=== PATIENT | female | born 1995 | race Two or more races ===

== ENCOUNTER 2024-10-01 15:38 | Outpatient (CLI) | payer OTHER, SELFPAY | END 2024-10-01 15:39 | disposition home or self-care (01) | LOC: NFLDREF 23:56 | PROVIDERS: Visit Provider Advanced Practice Midwife | DX: Z34.03 Encounter for supervision of normal first pregnancy, third trimester (principal) | CPT/HCPCS: 86592; 86704; 86706; 87340 ==

== ENCOUNTER 2024-11-22 11:00 | Outpatient (CLI) | payer OTHER, SELFPAY | END 2024-11-22 11:01 | disposition home or self-care (01) | LOC: NFLDREF 11-26 03:06 | PROVIDERS: Visit Provider Advanced Practice Midwife | DX: Z34.03 Encounter for supervision of normal first pregnancy, third trimester (principal) | CPT/HCPCS: 87081; 87653 ==

== ENCOUNTER 2024-12-02 10:39 | Outpatient (CLI) | payer OTHER, SELFPAY | END 2024-12-02 10:40 | disposition home or self-care (01) | PROVIDERS: Visit Provider Midwife | DX: Z34.93 Encounter for supervision of normal pregnancy, unspecified, third trimester (principal); Z3A.38 38 weeks gestation of pregnancy | CPT/HCPCS: 82239; 82565; 84450; 84460; 84550 ==

== ENCOUNTER 2024-12-03 11:31 | Inpatient (IN) | payer OTHER, SELFPAY ==
[2024-12-03] VITALS (56 sets, daily range): BP systolic 93–167; BP diastolic 51–100; PULSE 74–116; RESP 16; TEMP 36.4–36.7; O2SAT 98–100; BMI 22.7
[2024-12-03 11:36] LABS: Total Protein Urine 15 mg/dL
[2024-12-03 11:37] LABS: Creatinine Urine 65.2 mg/dL; Protein Creatinine Ratio Urine 0.23 (0-0.19)
[2024-12-03 12:15] LABS: Hematocrit 33.4 % (33.0-51.0); Hemoglobin* 11.5 gm/dL (12.0-16.0); Mean Corpuscular HGB Conc 34 gm/dL (32-36); Mean Corpuscular Hemoglobin 33 pg (26-34); Mean Corpuscular Volume 96 fL (80-100); Platelet Count* 171 K/uL (140-440); Red Blood Count 3.49 m/uL (4.00-5.20); White Blood Count* 7.13 K/uL (4.50-11.00)
--- NOTE | 2024-12-03 12:16 | W.PM.LDBA ---
Subjective History of Present Illness Date Seen: 12/03/24 Narrative: Patient is being admitted to Labor and Delivery for augmentation of early labor for choestasis, elevated bp without diagnosis of HTN at this time. She is a 29 year old at 38w5d weeks gestation. Her full history and physical was dictated by Dr. Yaa ANDERSON on 11/23/2024. Please see this for details. Pt presented to clinic visit yesterday with complaints of generalized itching that was worsening and decreased movement. She has papules of upper thighs, face, back, chest and upper belly. She also had itching of palms and soles of her feet. NST was reactive and Labs were sent at that time. Pt presented this morning to L&D with signs of early labor. No DIXON, vision changes, RUQ pain exclusive of contractions. Itching reported to be improved since the day prior, but she had been kvng through the night with increasing intensity. movement has been good. No vaginal bleeding or leaking of fluid. Significant LFT elevation >2x normal noted from labs yesterday. Bile acids still pending. Specific Issues/Plans G1 : [facility] at 29 weeks from [facility] in [place] H&P completed by MONICA Kay on 11/23/2024 # History latent TB. Treatment completed Aug 2023. # Family hx PreE (mom and sister). On 81mg ASA. # Hx Chlamydia at age 22. Neg at NOB. Transfer at 29 weeks OB Labs:??? Blood type: B+, antibody screen negative.? Rubella: Immune??? Varicella: Immune? RPR: non-reactive? Hep C: negative? HIV: negative??? UC: negative? GC/Chlamydia: negative/negative??? Pap (05/31/24): NIL??? Genetic screening: negative Helper? No Hep B in transfer records. Added to GTT at 28 weeks. ? IMAGING:??? 1st trimester: Normal IUP at 9.0 weeks on 05/11/24??? Anatomy scan: 07/26/24-Single IUP at 20.2 weeks with FHR 148, VICKEY normal, EFW 55%, all structures appear normal.??? COVID: initial series and boosted Flu: declined TDAP: 10/29/24 LP: 05/31/2024, NIL OB - Problem Based A/P Additional Plan (1) Hypertension affecting : Status: Acute (2) Cholestasis during : Status: Acute (3) First : Status: Acute Plan ASSESSMENT:?? 29 at 38w5d gestation?? complicated by:??cholestasis Labor type: early labor with augmentation?? Category 1 FHR pattern.??? Labor complicated by: elevated BP without diagnosis of HTN, cholestasis, elevated liver enzymes? GBS negative PLAN:?? 1. Pre-e labs sent. Cannot differentiate at this time if cholestasis responsible for elevated liver enzymes or if a pre-e process is occuring. If hypertension continues with 2 elevated BP 4 hr apart, diagnosis of pre-e with severe features would prompt a transfer to OB care, magnesium drip for prohylaxis. Dr Wolff aware of current patient situation and plan. Encouraged sooner rather than later and augmentation recommended. Pt agrees to pitocin initiation and would like to wait on AROM for now, but realized this is an option anytime. Plan reviewed with patient. 2 Peripheral IVs to be started. While liver enzymes have improved, they are still excessively high today. PCR 0.23. 2. Monitoring per policy, continuous 3. Planning unmedicated . Desires water . Consent signed. Hep C negative. Candidate for analgesia of choice.??? 4. Patient encouraged to reposition and ambulate to promote physiologic labor and if BP allows.?? 5. Anticipate ? OB Exam Physical Exam Vital signs: Pulse BP Pulse Ox 78 156/100 H 100 12/03/24 11:58 12/03/24 11:58 12/03/24 10:13 Narrative: Vitals Reviewed Constitutional:? Alert and oriented x3 HEENT:? Normocephalic, atraumatic Neck:? Supple Lungs:? Clear to auscultation bilaterally Heart:? Regular rate and rhythm, no murmur, rub or gallop Abdomen:? Soft, nontender, and gravid. Vertex by Eugene's, confirmed with cervical exam per nursing. Extremities:? No edema or erythema. +3/4 bilateral lower extremity reflexes with one beat clonus each Cervix: 2.5 cm/70%/-2 station/vertex NST: 125 bpm/moderate variability/accelerations present/decelerations absent/contractions q 6-8 min x 1.5-2 min See labs and VS
[2024-12-03 12:23] LABS: Slide Review Reflex No
[2024-12-03 12:34] LABS: Alanine Aminotransferase* 259 U/L (4-35); Aspartate Amino Transferase* 132 U/L (12-35); Blood Urea Nitrogen* 5 mg/dL (5-24); Creatinine* 0.5 mg/dL (0.5-1.5); Est. Creatinine Clearance* 164.35; Estimated Glomerular Filt Rate 132 ml/min
[2024-12-03] MEDS: LACTATED RINGERS 1000 ML 1,000 ML 35 ML IV ×2 (12:45→18:51)
[2024-12-03] MEDS: OXYTOCIN 30 unit/500 ML in NS 30 UNIT/500 ML BAG IVPB (12:46)
--- NOTE | 2024-12-03 13:34 | PM.OBPNVD1 ---
OB - PN:Subj Subjective Date Seen: 12/03/24 Interval history: Faby is doing well. BPs are increasing with last 160/100, severe range. Will transfer to OB for pre-e with severe features. Magnesium bolus to be initiated. Pitocin is running at 2 mu/min. Pt is coping well at this time and supported by her partner. OB - PN: Obj Exam Physical Exam: Vital signs: Temp Pulse Resp BP Pulse Ox 97.5 F L 86 16 160/100 H 100 12/03/24 10:14 12/03/24 13:30 12/03/24 10:14 12/03/24 13:30 12/03/24 10:13 Narrative: Objective: Constitutional: Alert and oriented x3, [mild/moderate/severe] distress, coping well Vital signs stable, see nurse documentation Abdomen: gravid, contractions palpate [mild/moderate/strong] with contractions and soft between NST: 135 bpm/moderate variability/accelerations present/decelerations absent/contractions q 4-5 min [id number] OB - PN: Obj Data Labs Labs: Laboratory Results - last 24 hr 12/03/24 12/03/24 11:09 12:05 WBC 7.13 RBC 3.49 L Hgb 11.5 L Hct 33.4 MCV 96 MCH 33 MCHC 34 Plt Count 171 BUN 5 Creatinine 0.5 Estimated Creat Clear 164.35 Estimated GFR 132 AST 132 H ALT 259 H Urine Creatinine 65.2 Protein/Creatinin Ratio 0.23 H Urine Total Protein 15 Blood Type B Positive Antibody Screen POSITIVE OB - PN: A/P Delivery Assessment and Plan (1) Cholestasis during : Status: Acute (2) First : Status: Acute (3) Preeclampsia: Status: Inactive (4) Pre-eclampsia in third trimester: Problem details: With severe features Status: Acute
--- NOTE | 2024-12-03 13:44 | PM.OBPNL ---
Subjective Date Seen: 12/03/24 Narrative: Faby is doing well. BPs are increasing with last 160/100, severe range. Will transfer to OB for pre-e with severe features. Magnesium bolus to be initiated. Pitocin is running at 2 mu/min. Pt is coping well at this time and supported by her partner. Objective Exam: Objective: Constitutional: Alert and oriented x3, no distress, coping well Vital signs stable, see nurse documentation Abdomen: gravid NST: 135 bpm/modreate variability/accelerations present/decelerations absent/contractions q 4-5 min x 2 min Vital Signs: Last Vital Signs Temp 97.5 F L 12/03/24 10:14 Pulse 86 12/03/24 13:30 Resp 16 12/03/24 10:14 BP 160/100 H 12/03/24 13:30 Pulse Ox 100 12/03/24 10:13 Plan Plan: ASSESSMENT:?? 29 at 38w5d gestation?? complicated by:??cholestasis Labor type: early labor with augmentation?? Category 1 FHR pattern.??? Labor complicated by: Preeclampsia with severe features, cholestasis of GBS negative PLAN:?? 1. Initiate magnesium therapy for prophylaxis. Transfer to OB for pre-e with severe features. 2. Monitoring per policy, continuous 3. Candidate for analgesia of choice.??? 4. Patient encouraged to reposition and ambulate to promote physiologic labor and if BP allows.?? 5. Anticipate ?
[2024-12-03] MEDS: MAGNESIUM IV 4 GM/100 ML PIGGYBACK IVPB (13:48)
[2024-12-03] MEDS: MAGNESIUM Infusion 40 GM/1,000 ML IV.SOLN IVPB (14:16)
--- NOTE | 2024-12-03 14:48 | PM.OBCN1 ---
OB - CN: HPI Date of Consult Time Seen by Provider: 13:40 Date Seen: 12/03/24 Patient: [facility] Patient Consult date: 12/03/24 Requesting Physician: Rocio Estrada CNM Primary Care Provider: Not a Local Provider Consult Narrative Reason for consult: gestational hypertension (Preeclampsia with severe features by both blood pressure and transaminitis.) Narrative: Faby is a 29-year-old total 1 para 0 who was admitted today for induction of labor for possible cholestasis of versus preeclampsia. The patient was seen in the clinic by the nurse flatcar whacker group yesterday and she was complaining of itching on the soles of her feet and palms of her hands liver function tests were obtained and both were elevated. AST 145 ALT 288. Bile acids are pending. She denies headache, visual disturbance, right upper quadrant pain and edema. She presented to the center this morning with concerns for possible early labor with contractions every 7-10 minutes. Her blood pressure was elevated on arrival at the Center. She was admitted for induction of labor due to suspected cholestasis of versus preeclampsia. Preeclampsia labs were obtained which showed: Hemoglobin 11.5, platelets 171 K, BUN 5, creatinine 0.5, AST 132, ALT 259, urine protein/creatinine ratio 0.23. At 1:30 p.m. the patient had blood pressure 160/100 so she was started on magnesium sulfate for seizure prophylaxis and met criteria for preeclampsia with severe features by transaminitis. After magnesium was started her blood pressures have all been 130s/80s. No antihypertensive medication was given. Because the patient meets criteria for severe preeclampsia I assumed care from Rocio Estrada CNM. Please see Ranjit's History and Physical note for complete details. History of Present Dating criteria: based on LMP care: good care Ultrasounds: normal 1st trimester US and normal mid trimester US complications: preeclampsia History History 1 Elective abortions Para 0 Spontaneous abortions Hx # Term Pregnancies Ectopic pregnancies Hx # Pregnancies Multiple births Number of Living Children 0 Labs Blood type: B (+) positive GBS status: negative OB Labs: Lab Assessment Start: 12/03/24 11:37 Freq: ONCE Status: Complete Protocol: PC.OBGBS Activity Type Activity Date Activity User E-sign Co-sign Detail Recorded Client Recorded Date Recorded By Document 02/21/25 11:48 ABP No Response 12/03/24 11:51 ABP 12/03/24 11:48 Lab Assessment GBS Status negative GBS Additional Criteria None No Treatment Needed OK Are Labs Available Yes Maternal Blood Type B Maternal RH Factor Positive Evaluate Maternal Rubella Immune Status Immune Hepatitis B Surface Antigen Negative Maternal HIV Status Negative Maternal Syphillis (RPR) Status Negative PFSH PFSH Medical History Hx: meningitis ?Z86.61 - Personal history of infections of the central nervous system (ICD-10) Personal history of latent tuberculosis infection ?Z86.15 - Personal history of latent tuberculosis infection (ICD-10) History of frequent urinary tract infections ?Z87.440 - Personal history of urinary (tract) infections (ICD-10) Surgical History Hx of tooth extraction ?K08.409 - Partial loss of teeth, unspecified cause, unspecified class (ICD-10) Family History Mother Preeclampsia High blood pressure Sister Preeclampsia Father High blood pressure Social History Narrative: SOCIAL Education: working on her bachelors in languages 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 Lives with: Pets: dog Abuse: Denies past Special Diet: Denies Ok with a blood transfusion: yes Culture or temple beliefs: denies RISK FACTORS Exercise Times/wk: occasionally walking Depression/Anxiety: denies Seat Belt Use: Routinely Smoking: Denies past/present Alcohol/day: Denies while Caffeine: 1 cup coffee per day Drug Use: Denies past/present Chicken Pox: Yes as a child MRSA: Denies What is your current living situation?: I presently have a place to live Problems where you live: no known problems In the past 12 months, utilities in danger of being shut off: no In past 12 months, lack of transportation kept you from medical appts, meetings, work, or getting things needed for daily living: no In the past 12 mos, have been you worried that your food would run out before you had money to buy more?: never true In the past 12 mos, the food you bought just didn't last and you didn't have money to buy more?: never true Smoking Status: Never smoker How often does anyone, including family, friends and others, physically hurt you: never How often does anyone, including family, friends and others, insult or talk down to you: never How often does anyone, including family, friends and others, threaten you with harm: never How often does anyone, including family, friends and others, scream or curse at you: never Meds Home Medications and Allergies Home Medications ?Medication ?Instructions ?Recorded ?Confirmed ?Type aspirin 81 mg chewable tablet 81 mg PO QDAY 09/27/24 12/03/24 History ferrous sulfate 325 mg (65 mg 325 mg PO Q OTHER DAY 09/27/24 12/03/24 History iron) tablet (Feosol) magnesium 250 mg tablet 250 mg PO QDAY 09/27/24 12/03/24 History Allergies Allergy/AdvReac Type Severity Reaction Status Date / Time No Known Drug Allergies Allergy Verified 12/02/24 10:31 OB - H&P: Exam Physical Exam: Vital signs: Temp Pulse Resp BP Pulse Ox 97.5 F L 88 16 137/93 H 98 12/03/24 10:14 12/03/24 14:35 12/03/24 10:14 12/03/24 14:35 12/03/24 14:16 Narrative: General: Pleasant woman in no acute distress. Vital signs: Included in her electronic medical record. Heart: Regular rate and rhythm without gallop, rub or murmur. Chest: Clear to auscultation bilaterally. Abdomen: Gravid, nontender. EFM: Baseline: 130s. Accelerations: Present. Decelerations: Absent. Moderate variability. Reactive. Category 1. TOCO: Q4-5 minutes. SVE: Patient declined and declined AROM at this time. Extremities: No pain or edema. DTR's 2+/2 at Bilateral patella. OB - Results Labs Labs: Short CBC 12/03/24 Range/Units 11:09 WBC 7.13 (4.50-11.00) K/uL Hgb 11.5 L (12.0-16.0) gm/dL Hct 33.4 (33.0-51.0) % Plt Count 171 (140-440) K/uL BMP 12/03/24 12:05 BUN 5 Creatinine 0.5 Liver Function 12/03/24 Range/Units 12:05 AST 132 H (12-35) U/L ALT 259 H (4-35) U/L OB - CN: A/P Assessment and Plan (1) Cholestasis during : Status: Acute (2) First : Status: Acute (3) Preeclampsia: Start date: 12/03/24 Start time: 13:30 Status: Inactive Plan 1. Continue Magnesium sulfate for seizure prophylaxis: discontinue when the patient is 24hours . 2. Blood type: B+ 3. GBS negative. 4. Continue pitocin per induction protocol. 5. The patient is planning an epidural for labor analgesia.
[2024-12-03] MEDS: LIDOCAINE 2% (PF) 5 ML VIAL EPIDURAL (15:33)
[2024-12-03] MEDS: ROPIVACAINE 0.2% 100 ml 100 ML 12 MG EPIDURAL (15:33)
--- NOTE | 2024-12-03 16:29 | PM.ANBPRC ---
PFSH PFS Medical History Hx: meningitis ?Z86.61 - Personal history of infections of the central nervous system (ICD-10) Personal history of latent tuberculosis infection ?Z86.15 - Personal history of latent tuberculosis infection (ICD-10) History of frequent urinary tract infections ?Z87.440 - Personal history of urinary (tract) infections (ICD-10) Surgical History Hx of tooth extraction ?K08.409 - Partial loss of teeth, unspecified cause, unspecified class (ICD-10) Family History Mother Preeclampsia High blood pressure Sister Preeclampsia Father High blood pressure Social History Narrative: SOCIAL Education: working on her bachelors in languages Work: [employer] Partner: Bharat- inspector [employer] Lives with: Pets: dog Abuse: Denies past Special Diet: Denies Ok with a blood transfusion: yes Culture or buddhism beliefs: denies RISK FACTORS Exercise Times/wk: occasionally walking Depression/Anxiety: denies Seat Belt Use: Routinely Smoking: Denies past/present Alcohol/day: Denies while Caffeine: 1 cup coffee per day Drug Use: Denies past/present Chicken Pox: Yes as a child MRSA: Denies What is your current living situation?: I presently have a place to live Problems where you live: no known problems In the past 12 months, utilities in danger of being shut off: no In past 12 months, lack of transportation kept you from medical appts, meetings, work, or getting things needed for daily living: no In the past 12 mos, have been you worried that your food would run out before you had money to buy more?: never true In the past 12 mos, the food you bought just didn't last and you didn't have money to buy more?: never true Smoking Status: Never smoker How often does anyone, including family, friends and others, physically hurt you: never How often does anyone, including family, friends and others, insult or talk down to you: never How often does anyone, including family, friends and others, threaten you with harm: never How often does anyone, including family, friends and others, scream or curse at you: never Meds Home Medications and Allergies Home Medications ?Medication ?Instructions ?Recorded ?Confirmed ?Type aspirin 81 mg chewable tablet 81 mg PO QDAY 09/27/24 12/03/24 History ferrous sulfate 325 mg (65 mg 325 mg PO Q OTHER DAY 09/27/24 12/03/24 History iron) tablet (Feosol) magnesium 250 mg tablet 250 mg PO QDAY 09/27/24 12/03/24 History Allergies Allergy/AdvReac Type Severity Reaction Status Date / Time No Known Drug Allergies Allergy Verified 12/02/24 10:31 Results Labs Labs: Laboratory Results - last 24 hr 12/03/24 12/03/24 11:09 12:05 WBC 7.13 RBC 3.49 L Hgb 11.5 L Hct 33.4 MCV 96 MCH 33 MCHC 34 Plt Count 171 BUN 5 Creatinine 0.5 Estimated Creat Clear 164.35 Estimated GFR 132 AST 132 H ALT 259 H Urine Creatinine 65.2 Protein/Creatinin Ratio 0.23 H Urine Total Protein 15 Blood Type B Positive Antibody Screen POSITIVE Vital Signs Vital Signs: Last Vital Signs Temp 97.6 F 12/03/24 15:57 Pulse 85 12/03/24 16:19 Resp 16 12/03/24 10:14 BP 109/63 12/03/24 16:19 Pulse Ox 99 12/03/24 16:07 Weight: 65.771 kg Height: 170.18 cm Anesthesia Procedures Epidural Insertion Patient Location: OB Start Time: 15:00 Stop Time: 16:00 Start Date: 12/03/24 Stop Date: 12/03/24 Reason for Block: procedure for pain Patient Position: sitting Performed By: Wendi Chapa Preanesthetic Checklist: IV checked, site marked, risks and benefits discussed, monitors and equipment checked, pre-op evaluation, timeout performed and anesthesia consent Prep: chlorhexidine gluconate Monitoring: blood pressure monitoring, continuous pulse oximetry and heart rate Approach: midline Vertebral Space: lumbar (1-5) Epidural Technique: LUCIO saline Needle Type: Tuohy needle Injection Technique: continuous catheter Needle gauge: 17 Needle Length (cm): 10 cm Needle Insertion Depth (cm): 6 Catheter Gauge: 20 Catheter at skin depth (cm): 15 Test Dose Result: negative and lidocaine 1.5% with epinephrine 1 to 200,000
[2024-12-03] MEDS: PHENYLEPHRINE 100 MCG/ML SYRINGE IVP (18:20)
--- NOTE | 2024-12-03 20:42 | W.PM.VAGDE_ITS ---
OB Procedure Vag Delivery Mother Details Mother Details: The patient is a 29 year-old, 1, Para 0, admitted on 12/03/24 at 38w 5d gestation for induction of labor due to presumptive intrahepatic cholestasis of and gestational hypertension. She had 2 severe range blood pressures at approximately 1:50 p.m. on 12/03/2024 was started on magnesium sulfate for seizure prophylaxis and transferred care to the OBGYN regulatory submissions associate Stephanie Macedo MD. She received an epidural for labor analgesia at 3:52 p.m. : 1 Para: 0 Weeks Gestation: 38 Admission Date: 12/03/24 Additional Details Amniotic Membrane Status: SROM Amniotic Membrane Rupture Date: 12/03/24 Amniotic Membrane Rupture Time: 17:19 Amniotic Membrane Fluid Description: Meconium Stained and Yellow Analgesia/Anesthesia Type: Epidural Waterbirth: No Pitcoin: Yes Intrapartal Events: Labor Induction Induction Method: per pitocin protocol Labor Onset: 15:11 Complete: 18:14 Pushin:33 Heart: heart tones during second stage showed in minimal to moderate variability with variable decelerations during contractions while pushing. Reassuring. Delivery Details Delivery Date: 12/03/24 Delivery Time: 20:02 Route of delivery: Gender: Female Viability: Alive; Heart Rate Present Position at Delivery: OA Delivery Details: Delivered via spontaneous vaginal delivery. was placed on maternal abdomen.? Cord was clamped and cut after a 30 second delay. Nose and mouth were bulb suctioned.? The infant was evaluated by the building supplies salesperson retail, Dr. Lavern Salazar, while the was skin to skin with the patient. weight pending. Apgars 8 at 1 and 9 at 5 minutes, respectively. No nuchal cords. No shoulder dystocia. Laceration repaired w/ 3-0 vicryl in the usual manner. Placenta delivered spontaneously and complete w/ a 3 vessel cord at 20:27. No uterine atony noted. 30u pitocin in 500mL LR at 300mL/hour given after delivery to prevent atony. 1 Minute Interval Total Score: 8 5 Minute Interval Total Score: 9 Additional Details Shoulder Dystocia: No Placenta Delivery Time: 20:27 Placental Delivery Description: Spontaneous Delivery repair: Vicryl Procedure Done: Global Blood Loss: 100 Laceration: Perineal - 2nd Degree Blood Loss Measurement Type: QBL Bakri Used: No Sponge/Need Count Correct: Yes Cord Vessel Description: 3 Vessels Event Summary Status: Mother and infant were stable after delivery. Disposition: floor
[2024-12-03 21:32] LABS: Hematocrit 38.6 % (33.0-51.0); Hemoglobin* 12.9 gm/dL (12.0-16.0); Mean Corpuscular HGB Conc 33 gm/dL (32-36); Mean Corpuscular Hemoglobin 32 pg (26-34); Mean Corpuscular Volume 97 fL (80-100); Platelet Count* 185 K/uL (140-440); Red Blood Count 3.98 m/uL (4.00-5.20)
[2024-12-03 21:38] LABS: Slide Review Reflex No
[2024-12-03 21:54] LABS: Alanine Aminotransferase* 321 U/L (4-35); Aspartate Amino Transferase* 171 U/L (12-35); Blood Urea Nitrogen* 5 mg/dL (5-24); Creatinine* 0.6 mg/dL (0.5-1.5); Est. Creatinine Clearance* 136.96; Estimated Glomerular Filt Rate 126 ml/min
[2024-12-03 21:59] LABS: Magnesium* 5.6 mg/dL (1.5-2.6)
[2024-12-03] MEDS: NIFEdipine 30 MG TAB.ER.24 PO (22:35)
[2024-12-04] VITALS (11 sets, daily range): BP systolic 103–138; BP diastolic 68–88; PULSE 91–102; RESP 12–20; TEMP 36.3–37; O2SAT 98–100
[2024-12-04 03:19] LABS: Hematocrit 32.7 % (33.0-51.0); Hemoglobin* 11.4 gm/dL (12.0-16.0); Mean Corpuscular HGB Conc 35 gm/dL (32-36); Mean Corpuscular Hemoglobin 33 pg (26-34); Mean Corpuscular Volume 95 fL (80-100); Platelet Count* 178 K/uL (140-440); Red Blood Count 3.46 m/uL (4.00-5.20); White Blood Count* 13.48 K/uL (4.50-11.00)
[2024-12-04 03:26] LABS: Slide Review Reflex No
[2024-12-04 03:37] LABS: Creatinine* 0.4 mg/dL (0.5-1.5); Est. Creatinine Clearance* 205.44; Estimated Glomerular Filt Rate 139 ml/min
[2024-12-04 03:38] LABS: Alanine Aminotransferase* 263 U/L (4-35); Aspartate Amino Transferase* 154 U/L (12-35); Blood Urea Nitrogen* 4 mg/dL (5-24)
[2024-12-04 03:44] LABS: Magnesium* 5.9 mg/dL (1.5-2.6)
[2024-12-04 06:57] LABS: Hemoglobin* 11.3 gm/dL (12.0-16.0)
--- NOTE | 2024-12-04 08:04 | PM.ANPOST ---
Post Anesthesia Note Post Anesthesia Note Patient seen: Inpatient Respiratory Status: adequate Cardiovascular Status: adequate Mental Status: baseline Pain: adequate Temp: baseline Anesthetic awareness: N/A Complications: none Follow care: none
[2024-12-04] MEDS: ACETAMINOPHEN 500 MG TABLET 1000 MG PO (08:08)
--- NOTE | 2024-12-04 08:48 | PM.OBPNVD1 ---
OB - PN:Subj Subjective Date Seen: 12/04/24 Interval history: Marisela is a 29-year-old G1 now P 1-0-0-1 woman who is status post normal spontaneous vaginal delivery on 12/03/2024 at 38 weeks, 5 days gestation in the setting of an induction of labor for cholestasis of . Diagnosis was based on plantar and Palmar pruritus and transaminitis. Bile acids were subsequently found to be elevated at 65. She was then diagnosed with preeclamsia with severe features by both blood pressure criteria and transaminitis. She was started on magnesium sulfate for seizure prophylaxis during labor, which continues at this time. In addition to magnesium, she is currently treated with nifedipine ER 30 mg QHS. Narrative: Marisela has no complaints this morning. Pain is well controlled. She is without difficulty. She denies any heavy bleeding. She had a little bit of a headache, but this resolved after Tylenol. She does feel sleepy. OB - PN: Obj Exam Physical Exam: Vital signs: Temp Pulse Resp BP Pulse Ox O2 Del Method 97.5 F L 102 H 18 121/84 100 Room Air 12/04/24 08:00 12/04/24 06:50 12/04/24 08:00 12/04/24 08:00 12/04/24 08:00 12/04/24 08:00 Fluid balance is -727 mL in last 24 hours. She has had 4200 in urine output in the last 24 hours. Narrative: General: Pleasant, no acute distress Heart: Regular rate and rhythm, no murmur or gallop Lungs: Clear to auscultation bilaterally Abdomen: Soft, nontender, fundus well below umbilicus Lower extremities: No edema or erythema OB - PN: Obj Data Labs Labs: Laboratory Results - last 24 hr 12/03/24 12/03/24 12/03/24 11:09 12:05 21:24 WBC 7.13 12.40 H RBC 3.49 L 3.98 L Hgb 11.5 L 12.9 Hct 33.4 38.6 MCV 96 97 MCH 33 32 MCHC 34 33 Plt Count 171 185 BUN 5 5 Creatinine 0.5 0.6 Estimated Creat Clear 164.35 136.96 Estimated GFR 132 126 Magnesium 5.6 H* AST 132 H 171 H ALT 259 H 321 H Urine Creatinine 65.2 Protein/Creatinin Ratio 0.23 H Urine Total Protein 15 Blood Type B Positive Antibody Screen POSITIVE 12/04/24 12/04/24 03:14 06:40 WBC 13.48 H RBC 3.46 L Hgb 11.4 L 11.3 L Hct 32.7 L MCV 95 MCH 33 MCHC 35 Plt Count 178 BUN 4 L Creatinine 0.4 L Estimated Creat Clear 205.44 Estimated GFR 139 Magnesium 5.9 H* AST 154 H ALT 263 H Urine Creatinine Protein/Creatinin Ratio Urine Total Protein Blood Type Antibody Screen OB - PN: A/P Delivery Assessment and Plan (1) Cholestasis during : Status: Acute Assessment and Plan: Transaminases falling (2) Severe preeclampsia: Problem details: By BP and transaminitis Status: Acute Assessment and Plan: With severe features based on transaminitis and blood pressure criteria. Continue magnesium sulfate for total 24 hours . Continue labs every 6 hours. Continue nifedipine at current dose and follow blood pressures after cessation of magnesium. (3) (normal spontaneous vaginal delivery): Problem details: girl, Maribell, Apgars 8/9. Status: Acute Assessment and Plan: Appropriate recovery. Plan day: 1 Comments: Likely discharge day 3.
[2024-12-04 09:50] LABS: Hematocrit 34.2 % (33.0-51.0); Hemoglobin* 11.6 gm/dL (12.0-16.0); Mean Corpuscular HGB Conc 34 gm/dL (32-36); Mean Corpuscular Hemoglobin 32 pg (26-34); Mean Corpuscular Volume 95 fL (80-100); Platelet Count* 185 K/uL (140-440); Red Blood Count 3.59 m/uL (4.00-5.20); White Blood Count* 12.18 K/uL (4.50-11.00)
[2024-12-04 09:51] LABS: Slide Review Reflex No
[2024-12-04 10:06] LABS: Alanine Aminotransferase* 256 U/L (4-35); Aspartate Amino Transferase* 144 U/L (12-35); Blood Urea Nitrogen* 4 mg/dL (5-24); Creatinine* 0.5 mg/dL (0.5-1.5); Est. Creatinine Clearance* 164.35; Estimated Glomerular Filt Rate 132 ml/min
[2024-12-04 10:13] LABS: Magnesium* 6.9 mg/dL (1.5-2.6)
[2024-12-04] MEDS: LACTATED RINGERS 500 ML 500 ML 35 ML IV (10:30)
[2024-12-04] MEDS: MAGNESIUM Infusion 40 GM/1,000 ML IV.SOLN IVPB (11:45)
[2024-12-04] MEDS: IBUPROFEN 600 MG TABLET PO (13:03)
[2024-12-04 15:03] LABS: Hematocrit 31.1 % (33.0-51.0); Hemoglobin* 10.8 gm/dL (12.0-16.0); Mean Corpuscular HGB Conc 35 gm/dL (32-36); Mean Corpuscular Hemoglobin 33 pg (26-34); Mean Corpuscular Volume 96 fL (80-100); Platelet Count* 185 K/uL (140-440); Red Blood Count 3.25 m/uL (4.00-5.20); White Blood Count* 11.37 K/uL (4.50-11.00)
[2024-12-04 15:04] LABS: Slide Review Reflex No
[2024-12-04 15:13] LABS: Creatinine* 0.5 mg/dL (0.5-1.5); Est. Creatinine Clearance* 164.35; Estimated Glomerular Filt Rate 132 ml/min
[2024-12-04 15:14] LABS: Alanine Aminotransferase* 231 U/L (4-35); Aspartate Amino Transferase* 125 U/L (12-35); Blood Urea Nitrogen* 4 mg/dL (5-24)
[2024-12-04 15:18] LABS: Magnesium* 6.5 mg/dL (1.5-2.6)
[2024-12-04] MEDS: NIFEdipine 30 MG TAB.ER.24 PO (21:01)
[2024-12-04 23:02] LABS: Rapid Plasma Reagin (RPR) Non Reactive (Non Reactive)
[2024-12-05 03:54] VITALS: BP 130/80; PULSE 99; RESP 12; TEMP 37.2; O2SAT 98
[2024-12-05] MEDS: ACETAMINOPHEN 500 MG TABLET 1000 MG PO (04:00)
[2024-12-05 08:00] VITALS: BP 118/84; PULSE 87; RESP 18; TEMP 36.9; O2SAT 100
--- NOTE | 2024-12-05 08:48 | P.DS_ITS ---
DS: Providers Provider Date Seen: 12/05/24 Date of admission: 12/03/24 11:31 Primary care physician: Not a Local Provider Admitting Clinician: Rocio Estrada CNM Consults: OB Consult for preeclampsia Attending Physician on discharge: Kesha Salazar MD Date of Discharge: 12/05/24 DS: Diagnosis Discharge Diagnosis (1) Lactating mother: Status: Acute (2) Second degree perineal laceration during delivery: Status: Acute (3) (normal spontaneous vaginal delivery): Status: Acute Problem details: girl, Maribell, Apgars 8/9. (4) Severe preeclampsia: Status: Acute Problem details: By BP and transaminitis (5) Cholestasis during : Status: Acute Exam Narrative: Exam Narrative: General: Pleasant, no acute distress Heart: Regular rate and rhythm, no murmur or gallop Lungs: Clear to auscultation bilaterally Abdomen: Soft, nontender, fundus well below umbilicus Lower extremities: No edema or erythema Const: Vital Signs, click to edit/add: Vital Signs - 24 hr 12/04/24 10:20 12/04/24 12:50 12/04/24 14:00 Temperature 97.4 F L 98.2 F Pulse Rate [Pulse Oximeter] 101 H 91 91 Respiratory Rate 20 16 16 Blood Pressure [Le ft Arm] 119/77 115/74 116/78 Pulse Oximetry 99 98 98 Oxygen Delivery Me thod Room Air Room Air Room Air 12/04/24 16:00 12/04/24 18:03 12/04/24 21:03 Temperature 97.5 F L 97.4 F L Pulse Rate [Pulse Oximeter] 93 92 92 Respiratory Rate 18 18 12 Blood Pressure [Le ft Arm] 128/85 122/82 126/81 Pulse Oximetry 99 99 Oxygen Delivery Me thod Room Air Room Air Room Air 12/04/24 23:38 12/05/24 03:54 12/05/24 08:00 Temperature 97.7 F 99.0 F 98.4 F Pulse Rate [Pulse Oximeter] 91 99 87 Respiratory Rate 12 12 18 Blood Pressure [Le ft Arm] 130/87 130/80 118/84 Pulse Oximetry 99 98 100 Oxygen Delivery Me thod Room Air Room Air Room Air OB - DS: Summary Hospital Course Hospital Course: Marisela is a 29-year-old G1 now P 1-0-0-1 woman who is status post normal spontaneous vaginal delivery on 12/03/2024 at 38 weeks, 5 days gestation in the setting of an induction of labor for cholestasis of . Diagnosis was based on plantar and Palmar pruritus and transaminitis. Bile acids were subsequently found to be elevated at 65. She was then diagnosed with preeclampsia with severe features by both blood pressure criteria and transaminitis. She was started on magnesium sulfate for seizure prophylaxis d uring labor, which continued for 24 hours . In addition, she is currently treated with nifedipine ER 30 mg daily. Today, on day 2, she has no complaints. She notes a little bit of occasional low back pain. She denies any heavy bleeding. Her Maribell is without difficulty. In the last 24 hours, her highest blood pressures have been 130s over 80s. Her transaminases are falling, and all of her other HELLP labs are stable. Her hemoglobin yesterday morning was 10.8. [place] Infant Gender: Female Time Spent with Patient Time attestation: Total time spent providing and/or coordinating discharge services: Discharge Plan Discharge Disposition: Home, Self-Care Date of Admission: 12/03/24 11:31 Attending Provider on Discharge: Kesha Salazar Primary Care Provider: Provider,Not a Local Condition: Stable Anticipated Discharge Date/Time: 12/05/24 08:52 Discharge Medications: New nifedipine 30 mg Tablet Extended Release 24hr 30 mg PO DAILY Qty: 30 0RF acetaminophen 500 mg Tablet 1,000 mg PO Q6H PRNQty: 0 0RF docusate sodium 100 mg Capsule 100 mg PO BID PRNQty: 0 0RF ibuprofen 600 mg Tablet 600 mg PO Q6H PRNQty: 0 0RF Lanolin (HPA) 100 % Cream 1 applic topical Q1H PRNQty: 0 0RF Continued ferrous sulfate [Feosol] 325 mg (65 mg iron) tablet 325 mg PO Q OTHER DAY triamcinolone acetonide 0.1 % lotion 1 applic topical BID Qty: 60 1RF One-A-Day -1 27 mg iron- 800 mcg-235 mg capsule 1 cap PO DAILY Qty: 90 3RF Discontinued magnesium 250 mg tablet 250 mg PO QDAY aspirin 81 mg tablet,chewable 81 mg PO QDAY Discharge Orders: Discharge Order (Routine); Ordered 12/05/24 Ordered By: Kesha Salazar Patient Education: OB High Blood Pressure DC, OB Vaginal/Breast Feeding Activity Detail: Nothing per vagina for 6 weeks Discharge Diet: Regular Follow Up Appointments: Provider,Not a Local [Primary Care Provider] - Kesha Salazar MD [Staff Physician] - Forms: [facility] Info Instructions
[2024-12-05] MEDS: NIFEdipine 30 MG TAB.ER.24 PO (08:51)
[2024-12-05 10:10] VITALS: BP 128/86
[2024-12-05 10:54] VITALS: BP 127/86
== END 2024-12-05 11:10 | disposition home or self-care (01) | DRG 805 ==
LOC: OB OUT 11:31 → OB 11:31
PROVIDERS: Obstetrics & Gynecology; Admitting Provider Midwife; Visit Provider Midwife
DX: O26.643 Intrahepatic cholestasis of pregnancy, third trimester (principal); K83.1 Obstruction of bile duct; O14.14 Severe pre-eclampsia complicating childbirth; O26.893 Other specified pregnancy related conditions, third trimester; L29.81 Cholestatic pruritus; O77.0 Labor and delivery complicated by meconium in amniotic fluid; O70.1 Second degree perineal laceration during delivery; Z3A.38 38 weeks gestation of pregnancy; Z37.0 Single live birth
CPT/HCPCS: 01967; 36415; 82565; 82570; 83735; 84156; 84450; 84460; 84520; 85018; 85027; 86592; 86850; 86870; 86880; 86900; 86901; 88307; A9270; J2371; J2795; J3475; J7120

== ENCOUNTER 2025-01-14 08:25 | Outpatient (CLI) | payer OTHER, SELFPAY | END 2025-01-14 08:26 | disposition home or self-care (01) | LOC: NFLDREF 13:16 | PROVIDERS: Visit Provider Midwife | DX: Z39.1 Encounter for care and examination of lactating mother (principal) | CPT/HCPCS: 84450; 84460 ==